=== PATIENT | female | born 1965 | race Two or more races ===

== ENCOUNTER 2021-03-20 02:31 | Emergency (ER) | payer OTHER ==
[~2021-03-20] VITALS: Ht 167.6 cm; Wt 73.5 kg
[2021-03-20] MEDS ORDERED: KETO10TA2 PO (04:29)
== END 2021-03-20 04:36 | disposition home or self-care (01) ==
LOC: ER 02:31
DX: S60.212A Contusion of left wrist, initial encounter (principal); W01.0XXA Fall on same level from slipping, tripping and stumbling without subsequent striking against object, initial encounter; Y93.01 Activity, walking, marching and hiking; Y92.89 Other specified places as the place of occurrence of the external cause; Y99.8 Other external cause status

== ENCOUNTER 2023-03-08 10:58 | Emergency (ER) | payer OTHER ==
[~2023-03-08] VITALS: Ht 172.7 cm; Wt 69.9 kg
[~2023-03-08 10:58] MED LIST: KETO10TA2 PO
[2023-03-08 13:55] LABS: HEMATOCRIT 44.9 % (36.0-45.00); HEMOGLOBIN 15.3 g/dL (12.0-15.00); MEAN CELL VOLUME 88.4 fL (80.00-100.00); MEAN CORPUSCULAR HEMOGLOBIN 30.2 pg (27.00-32.0); MEAN CORPUSCULAR HGB CONC 34.2 g/dl (32.0-36.0); PLATELET COUNT 324 K/uL (150-450); RED BLOOD COUNT 5.08 M/uL (4.00-6.00); RED CELL DISTRIBUTION WIDTH 13.4 % (11.5-14.5)
[2023-03-08 14:14] LABS: CALCIUM 9.5 mg/dL (8.5-10.1); CREATININE SERUM 0.74 mg/dL (0.55-1.02); GFR 80.89; POTASSIUM 4.51 mEq/L (3.5-5.1)
== END 2023-03-08 17:14 | disposition home or self-care (01) ==
LOC: ER 10:59
PROVIDERS: General Practice
DX: K04.7 Periapical abscess without sinus (principal)

== ENCOUNTER 2024-05-28 13:38 | Emergency (ER) | payer OTHER ==
[~2024-05-28] VITALS: Ht 167.6 cm; Wt 59.0 kg
[2024-05-28] MEDS ORDERED: CLONIDINE HCL 0.1 MG TABLET PO ONE (14:30)
[2024-05-28] MEDS ORDERED: cloNIDine HCL 0.2 MG TABLET PO ONE (14:30)
[2024-05-28] MEDS ORDERED: COZAAR50 MG PO (17:32)
== END 2024-05-28 18:22 | disposition home or self-care (01) ==
LOC: ER 13:41
DX: I10 Essential (primary) hypertension (principal)

== ENCOUNTER 2024-10-27 18:09 | Emergency (ER) | payer OTHER ==
[~2024-10-27] VITALS: Ht 160 cm; Wt 59.0 kg
[~2024-10-27 18:09] MED LIST changes: +COZAAR50 MG PO
[2024-10-27] MEDS ORDERED: ROSUVASTATIN CA10 MG (19:00)
[2024-10-27] MEDS ORDERED: ASA81 MG (19:00)
[2024-10-27] MEDS ORDERED: AMLODIPINE (19:00)
== END 2024-10-27 20:02 | disposition home or self-care (01) ==
LOC: ER 18:30
DX: S90.211A Contusion of right great toe with damage to nail, initial encounter (principal); X58.XXXA Exposure to other specified factors, initial encounter; Y93.89 Activity, other specified; Y92.018 Other place in single-family (private) house as the place of occurrence of the external cause; Y99.9 Unspecified external cause status